=== PATIENT | male | born 1975 | race Caucasian/White ===

== ENCOUNTER → 2017-03-31 | Outpatient (REF) | LOC: WSOH 10:13 | DX: Z02.89 Encounter for other administrative examinations (principal) ==

== ENCOUNTER → 2017-03-31 | Outpatient (REF) | LOC: WSOH 10:14 | DX: Z02.89 Encounter for other administrative examinations (principal) ==

== ENCOUNTER → 2017-04-17 | Outpatient (CLI) | payer OTHER ==
[2017-04-17 15:25] LABS: BASO # 0.1 (0.0-0.2); BASO % 0.9 % (0.0-2.0); EOS # 0.2 (0.0-0.7); EOS % 2.3 % (0-4.0); GRAN # 3.8 (1.4-6.5); HEMATOCRIT 45.5 % (42.0-52.0); HEMOGLOBIN 15.8 g/dl (13.5-18.0); LYMPH # 1.9 (1.2-3.4); LYMPH % 29.7 % (20.0-51.0); MEAN CELL VOLUME 86 fl (80.0-100.0); MEAN CORPUSCULAR HEMOGLOBIN 30 pg (27.0-31.0); MEAN CORPUSCULAR HGB CONC 35 g/dl (33.0-37.0); MEAN PLATELET VOLUME 9.4 fl (7.4-10.4); MONO # 0.6 (0.1-0.6); MONO % 8.6 % (1.7-9.3); PLATELET COUNT 220 K/mm3 (130-400); RED BLOOD COUNT 5.28 M/mm3 (4.20-5.60); REDCELL DISTRIBUTION WIDTH-CV 12.6 % (11.5-14.5); WHITE BLOOD COUNT 6.5 K/mm3 (4.8-10.8)
[2017-04-17 15:31] LABS: ADJUSTED CALCIUM 9.7 mg/dL (8.4-10.2); ALBUMIN 4.5 gm/dL (3.5-5.0); BILIRUBIN,TOTAL 0.8 mg/dL (0.0-1.0); CALCIUM 10.1 mg/dL (8.4-10.2); CREATININE, serum 0.73 mg/dL (0.66-1.25); POTASSIUM 4.3 mmol/L (3.4-5.0); TOTAL PROTEIN 7.4 gm/dL (6.4-8.2)
== END ==
LOC: COL.LAB 12:13
PROVIDERS: Family Medicine
DX: E66.3 Overweight (principal)

== ENCOUNTER → 2020-03-19 | Outpatient (CLI) | payer OTHER | LOC: ZCOL.LAB 15:59 | DX: L72.3 Sebaceous cyst (principal) ==